=== PATIENT | male | born 1975 | race Caucasian/White ===

== ENCOUNTER → 2021-01-09 | Outpatient (CLI) | payer OTHER ==
--- NOTE | 2021-01-09 16:29 | CT ---
EXAMINATION TYPE: CT abdomen pelvis w con DATE OF EXAM: 01/09/2021 COMPARISON: None INDICATION: RLQ pain DLP: 6799.9 mGycm, Automated exposure control for dose reduction was used. CONTRAST: 100 mL of Isovue 300. Study performed with Oral Contrast TECHNIQUE: Axial images were obtained from above the diaphragm to the pubic rami in the axial plane a t 5 mm thick sections. Reconstructed images are reviewed on the computer in the coronal plane. FINDINGS: Limited CT sections are obtained the lung bases. The lung bases are clear. CT ABDOMEN: Liver: Normal Spleen: Normal Pancreas: Normal Adrenal glands: The adrenal glands are normal. Gallbladder: Normal Kidneys: No masses are evident. No hydronephrosis is present. No cysts are present. No renal stone s are identified. Aorta: Normal Inferior vena cava: Normal. CT PELVIS: Loops of bowel within the abdomen and pelvis are normal. There are loops of bowel which are incom pletely distended or lack oral contrast limiting their evaluation. Appendix: Normal as visualized. Urinary bladder: Normal. Genitourinary structures: There is a large right inguinal hernia with an opening at least 5.9 cm. Loo ps of bowel without evidence of obstruction are present. Osseous structures: No suspicious lytic or sclerotic lesions. IMPRESSIONS: 1. Large right inguinal hernia containing loops of bowel without obstruction. 2. Normal appendix
== END ==
LOC: RADCTMAIN 12:53
PROVIDERS: ATTEND Surgery Plastic and Reconstructive Surgery
DX: K40.90 Unilateral inguinal hernia, without obstruction or gangrene, not specified as recurrent (principal); R10.31 Right lower quadrant pain
CPT/HCPCS: 74177; Q9967

== ENCOUNTER → 2021-01-15 | Outpatient (CLI) | payer OTHER ==
[2021-01-15 19:31] LABS: HCT 48.2 % (39.6-50.0); HGB 15.8 g/dL (13.0-17.0); MCH 29.2 pg (27.0-32.0); MCHC 32.8 g/dL (32.0-37.0); MCV 88.9 fL (80.0-97.0); Platelet Count 247 X 10*3/uL (140-440); RBC 5.42 X 10*6/uL (4.40-5.60); RDW 13.8 % (11.5-14.5); WBC 8.03 X 10*3/uL (4.50-10.00)
[2021-01-15 19:42] LABS: % Iron Saturation 23.03 (15.00-50.00); African American GFR (CKD) 104.9 (60.0-200.0); Albumin 4.7 g/dL (3.80-4.90); Albumin/Globulin Ratio 1.57 (1.60-3.17); Anion Gap 7.4 mmol/L (4.00-12.00); Calcium 9.8 mg/dL (8.7-10.3); Carbon Dioxide 31.6 mmol/L (21.6-31.8); Chol/HDL Ratio 4.69; LDL Cholesterol,Calculated 83.2 mg/dL (0.0-131.0); Non-African American GFR(CKD) 90.5 (60.0-200.0); Phosphorus 3.8 mg/dL (2.4-5.1); Potassium 4.6 mmol/L (3.5-5.5); Total Bilirubin 1.5 mg/dL (0.3-1.2); Total Protein 7.7 g/dL (6.2-8.2); VLDL Calculation 49.8 mg/dL (5.00-40.00)
[2021-01-15 19:50] LABS: Ferritin 70.7 ng/mL (22.0-322.0)
[2021-01-15 20:13] LABS: Folate, Serum 15.2 ng/mL
[2021-01-16 04:21] LABS: Partial Thromboplastin Time 29.5 sec (23.5-31.0); Prothrombin Time 10.9 sec (9.9-11.9)
[2021-01-17 06:27] LABS: Vitamin A 51 ug/dL (38-106)
[2021-01-17 06:37] LABS: Vit B1(Thiamine) 89 ug/L (38-122)
[2021-01-25 10:34] LABS: Selenium 112
[2021-01-25 10:35] LABS: Zinc, Serum 72
== END | disposition home or self-care (01) ==
LOC: LABWHC1 14:15
PROVIDERS: ATTEND Surgery Plastic and Reconstructive Surgery
DX: E89.1 Postprocedural hypoinsulinemia (principal); E21.1 Secondary hyperparathyroidism, not elsewhere classified; N19 Unspecified kidney failure; D50.8 Other iron deficiency anemias; K90.89 Other intestinal malabsorption; K50.90 Crohn's disease, unspecified, without complications; I11.9 Hypertensive heart disease without heart failure
CPT/HCPCS: 36415; 80053; 80061; 82306; 82525; 82607; 82728; 82746; 83036; 83540; 83550; 83735; 83970; 84100; 84134; 84255; 84425; 84443; 84590; 84630; 85027; 85610; 85730; 93005

== ENCOUNTER → 2021-04-18 | Outpatient (CLI) | payer OTHER ==
--- NOTE | 2021-04-19 18:00 | ECHOF ---
Referral Reason:[id number] preprocedural cardiovascular examination MEASUREMENTS -------- HEIGHT: 182.9 cm WEIGHT: 235.9 kg BP: IVSd: 1.2 cm (0.6 - 1.1) LVIDd: 5.2 cm (3.9 - 5.3) LVPWd: 1.4 cm (0.6 - 1.1) IVSs: 1.7 cm LVIDs: 3.8 cm LVPWs: 1.6 cm FINDINGS -------- Sinus rhythm. Morbid Obesity This was a techncally difficult study with suboptimal views, , Lumason utilized for enhancement of im ages. Overall left ventricular systolic function is low-normal with, an EF between 50 - 55 %. The RV was not well visualized. The left atrial size is normal. The right atrial size is normal. The aortic valve was not well visualized. The mitral valve was not well visualized. The tricuspid valve was not well visualized. The pulmonic valve was not well visualized. CONCLUSIONS -------- 1. Morbid Obesity 2. This was a techncally difficult study with suboptimal views, , Lumason utilized for enhancement of images. 3. Overall left ventricular systolic function is low-normal with, an EF between 50 - 55 %. 4. The RV was not well visualized. 5. The left atrial size is normal. 6. The right atrial size is normal. 7. The aortic valve was not well visualized. 8. The mitral valve was not well visualized. 9. The tricuspid valve was not well visualized. 10. The pulmonic valve was not well visualized. PLASTIC MOLDER: Lesli Rubio RDCS
== END | disposition home or self-care (01) ==
LOC: RADECHMAIN 16:07
PROVIDERS: ATTEND Internal Medicine Cardiovascular Disease
DX: Z01.810 Encounter for preprocedural cardiovascular examination (principal); E66.01 Morbid (severe) obesity due to excess calories
CPT/HCPCS: C8929; Q9950; 93306

== ENCOUNTER → 2021-08-14 | Outpatient (CLI) | payer OTHER ==
[2021-08-14 15:57] VITALS: BP 136/93; PULSE 85; RESP 18; TEMP 98.3; BMI 94.3
--- NOTE | 2021-08-14 16:17 | P.HPBAR ---
Bariatric H&P - History & Physicial H&P Date: 08/14/21 History & Physicial: Visit/CC: initial visit Patient initial contact: Initial weight: Initial weight in pounds: Height: 5 ft 4 in Initial BMI: Last weight: Current weight: 249.43 kg Current weight in pounds: 549.90 Current BMI: 94.3 [place] body weight (based on NIH guidelines): 58.967 kg Excess body weight loss: The patient is a 46 year-old M who presents for Bariatric Assessment. He comes in with BMI over 70. He has a large recurrent right groin hernia with bowel. Weight highest at 550 pound at present. No prior attempt. Sees a retail management trainee. He is looking into band. Needs extensive dietary restrictions. [facility] outcomes. Past Medical History Past Medical History: Hypertension, Sleep Apnea/CPAP/BIPAP Additional Past Medical History / Comment(s): 2020 - 70% lung function. History of Any Multi-Drug Resistant Organisms: None Reported Past Surgical History: Adenoidectomy, Tonsillectomy Additional Past Surgical History / Comment(s): eye surgery while child. 2 hernia surgeries since 2018. scrotum reconstruction surgery May 2021. Past Anesthesia/Blood Transfusion Reactions: No Reported Reaction Smoking Status: Never smoker Surgical - Exam Vital Signs Temp Pulse Resp BP 98.3 F 85 18 136/93 08/14/21 15:54 08/14/21 15:54 08/14/21 15:54 08/14/21 15:54 Bariatric Checklist Checklist: Plan: Checklist: EGD: 1. Hiatal hernia: 2. H. Pylori: HgbA1c: Vitamin D: Smoking: Primary care physician referral: Dr Danilo Murphy Psychiatry clearance: Cardiology clearance: Sleep study: Diet journal: VTE risk score: VTE risk level: Rehab needs at discharge:
[2021-08-14 16:54] LABS: HCT 51.9 % (39.0-53.0); HGB 17.4 gm/dL (13.0-17.5); MCH 30.7 pg (25.0-35.0); MCHC 33.5 g/dL (31.0-37.0); MCV 91.7 fL (80.0-100.0); Mean Platelet Volume 7.5; Platelet Count 226 k/uL (150-450); Poikilocytosis Slight; RBC 5.66 m/uL (4.30-5.90); RDW 14.4 % (11.5-15.5); WBC 8.5 k/uL (3.8-10.6)
[2021-08-15 00:55] LABS: INR 1.05 (0.90-1.11); Partial Thromboplastin Time 30.5 sec (23.5-31.0); Prothrombin Time 11.4 sec (9.9-11.9)
[2021-08-15 09:01] LABS: Folate, Serum 13.9 ng/mL (4.40-31.00)
[2021-08-15 09:24] LABS: % Iron Saturation 20.43 (15.00-50.00); BUN/Creat Ratio 16.34 Ratio (12.00-20.00); Chol/HDL Ratio 5.03 Ratio; Globulin 3.1 g/dL (1.6-3.3); LDL Cholesterol,Calculated 98.4 mg/dL (0.0-131.0); VLDL Calculation 47.4 mg/dL (5.00-40.00)
[2021-08-15 09:25] LABS: African American GFR (CKD) 120.4 (60.0-200.0); Albumin 4.6 g/dL (3.8-4.9); Albumin/Globulin Ratio 1.48 (1.60-3.17); Blood Urea Nitrogen 14.1 mg/dL (9.0-27.0); Calcium 9.6 mg/dL (8.7-10.3); Carbon Dioxide 19.2 mmol/L (21.6-31.8); HDL Cholesterol 36.2 mg/dL (40.00-60.00); Magnesium 2.1 mg/dL (1.5-2.4); Non-African American GFR(CKD) 103.8 (60.0-200.0); Phosphorus 3.2 mg/dL (2.4-5.1); Potassium 4.7 mmol/L (3.5-5.5); Prealbumin 21.7 mg/dL (18.0-42.0); Total Bilirubin 1.1 mg/dL (0.30-1.20); Total Protein 7.7 g/dL (6.2-8.2)
[2021-08-15 13:53] LABS: Zinc, Serum 80 ug/dL (60-130)
[2021-08-16 06:10] LABS: Vitamin A 40 ug/dL (38-106)
[2021-08-16 06:34] LABS: Vit B1(Thiamine) 99 ug/L (38-122)
[2021-08-16 15:13] LABS: Anabasine Urine <2.0 ng/mL (<2.0)
== END | disposition home or self-care (01) ==
LOC: BARWHC3 15:06
PROVIDERS: ATTEND Surgery Plastic and Reconstructive Surgery
DX: E66.01 Morbid (severe) obesity due to excess calories (principal); E89.1 Postprocedural hypoinsulinemia; D50.8 Other iron deficiency anemias; K90.89 Other intestinal malabsorption; E55.9 Vitamin D deficiency, unspecified; K74.1 Hepatic sclerosis; N19 Unspecified kidney failure; K50.90 Crohn's disease, unspecified, without complications
CPT/HCPCS: 84255; 84134; 84425; 80061; 80053; 82607; 82728; 82525; 82746; 83540; 83550; 83735; 84100; 84443; 84590; 84630; 85027; 85610; 85730; 82306; 83970; 83036; 80307; G0480; G0482; G0463; 80323; 99203